=== PATIENT | female | born 1935 | race Caucasian/White ===

== ENCOUNTER 2016-10-21 16:05 | Emergency (ER) | payer OTHER, MEDICAID ==
[~2016-10-21 16:05] MED LIST: BENICAR HCT 12.1 TAB PO; DEXILANT DR PO; ECO81 PO; FLUOXETINE20 MG PO; GLYBURIDE/METFO1 TA7 PO; HYDROXYCHLOROQ200 M2 PO; JANUVIA100 MG PO; LANTI SQ; LOR PO; LYRICA100 MG PO; MET2.5 PO; METHOTREXATE2.5 PO; NIT0.4 SL; NORCO1 TA2 PO; PRAMIPEXOLE0.125 MG PO; REG5 PO; SIMVASTATIN40 MG PO; Z PO
[2016-10-21 19:25] VITALS: BP 156/90
== END 2016-10-21 19:25 | disposition home or self-care (01) ==
LOC: ED 16:05
DX: S80.01XA Contusion of right knee, initial encounter (principal); I10 Essential (primary) hypertension; E11.9 Type 2 diabetes mellitus without complications; E78.00 Pure hypercholesterolemia, unspecified; M19.90 Unspecified osteoarthritis, unspecified site; Z88.6 Allergy status to analgesic agent; Z88.8 Allergy status to other drugs, medicaments and biological substances; Z79.4 Long term (current) use of insulin; W17.89XA Other fall from one level to another, initial encounter; Y93.89 Activity, other specified; Y92.89 Other specified places as the place of occurrence of the external cause; Y99.8 Other external cause status
CPT/HCPCS: J1885; Q0092

== ENCOUNTER 2017-03-15 17:14 | Inpatient (IN) | payer OTHER, MEDICAID ==
[~2017-03-15] VITALS: Ht 157.5 cm; Wt 76.8 kg
[2017-03-15 18:18] LABS: BASOPHIL % 1.5 % (0-2); PLATELET COUNT 278 x10^3mcL (130-400); RED CELL DISTRIBUTION WIDTH 13.9 % (11.5-14.5)
[2017-03-15 18:28] LABS: CALCIUM 8.4 mg/dL (8.5-10.1); CARBON DIOXIDE 24.4 mmol/L (21-32); CHLORIDE SERUM 98 mmol/L (98-107); GLUCOSE SERUM 447 mg/dL (74-106); POTASSIUM SERUM 4.1 mmol/L (3.5-5.1); SODIUM SERUM 132 mmol/L (136-145)
[2017-03-15 18:33] LABS: ALBUMIN 3.3 g/dL (3.4-5.0); ALKALINE PHOSPHATASE 116 U/L (46-116); ALT/SGPT 28 U/L (14-59); AST/SGOT 29 U/L (15-37); BILIRUBIN TOTAL 0.54 mg/dL (0.20-1.00); TOTAL PROTEIN, SERUM 7.1 g/dL (6.4-8.2)
[2017-03-15 20:32] VITALS: BP 166/88
[2017-03-15 20:35] VITALS: Ht 157.5 cm; Wt 76.8 kg
[2017-03-15 21:05] LABS: TOTAL IRON BINDING CAPACITY 250 ug/dL (250-450)
[2017-03-15 21:07] LABS: IRON 31 ug/dL (50-170)
[2017-03-15 21:08] LABS: PHOSPHOROUS 2.3 mg/dL (2.5-4.9)
[2017-03-15 21:10] LABS: RED BLOOD CELLS 4.23 M/mm3 (4.10-5.10)
[2017-03-15 21:11] LABS: CHOLESTEROL/HDL RATIO 2.2
[2017-03-15 21:19] LABS: FREE T4 1.08 ng/dL (0.76-1.46); FREE THYROXINE INDEX 2.7 ug/dL (1.4-4.5); T4(THYROXINE) 8.2 ug/dL (4.7-13.3)
[2017-03-16 02:24] LABS: UA SPECIFIC GRAVITY 1.025 (1.005-1.035); microscopic required? YES; urine erythrocyte TRACE (NEGATIVE)
[2017-03-16 06:14] VITALS: BP 162/91
[2017-03-16 10:03] VITALS: BP 163/78
[2017-03-16 13:45] LABS: T3 TOTAL 0.95 ng/mL
[2017-03-16 15:08] VITALS: BP 145/69
[2017-03-16 17:59] VITALS: BP 150/76
[2017-03-16 20:55] VITALS: BP 164/68
[2017-03-17 05:48] VITALS: BP 131/63
[2017-03-17 06:23] LABS: CALCIUM 8.1 mg/dL (8.5-10.1); CARBON DIOXIDE 29.4 mmol/L (21-32); CHLORIDE SERUM 101 mmol/L (98-107); CREATININE SERUM 0.7 mg/dL (0.6-1.0); GLUCOSE SERUM 223 mg/dL (74-106); MAGNESIUM 2.2 mg/dL (1.8-2.4); PHOSPHOROUS 2.9 mg/dL (2.5-4.9); POTASSIUM SERUM 3.6 mmol/L (3.5-5.1); SODIUM SERUM 138 mmol/L (136-145)
[2017-03-17 06:27] LABS: BASOPHIL % 0.2 % (0-2); PLATELET COUNT 235 x10^3mcL (130-400)
[2017-03-17 06:30] LABS: RED CELL DISTRIBUTION WIDTH 15.2 % (11.5-14.5)
[2017-03-17 13:25] VITALS: BP 141/73
[2017-03-17] MEDS ORDERED: FER300 PO (15:05)
[2017-03-17] MEDS ORDERED: XARELTO20 M1 PO (15:06)
[2017-03-17] MEDS ORDERED: COZAAR100 MG PO (15:11)
[2017-03-17] MEDS ORDERED: PROZ20 PO (15:13)
[2017-03-17] MEDS ORDERED: MIR125 PO (15:17)
[2017-03-17] MEDS ORDERED: VITC PO (15:22)
[2017-03-17] MEDS ORDERED: BENICAR HCT1 TA1 PO (15:23)
[2017-03-17] MEDS ORDERED: METFORMIN HCL1000 MG PO (16:55)
[2017-03-17] MEDS ORDERED: GLYBURIDE5 MG PO (16:55)
[2017-03-17 17:39] VITALS: BP 146/72
[2017-03-17 18:07] VITALS: BP 146/72
== END 2017-03-17 18:45 | disposition home health service (06) | DRG 562 ==
LOC: ED 17:14 → DU 19:11 → MU 03-17 07:57
PROVIDERS: Emergency Medicine; Family Medicine
DX: S42.252A Displaced fracture of greater tuberosity of left humerus, initial encounter for closed fracture (principal); N17.0 Acute kidney failure with tubular necrosis; E87.1 Hypo-osmolality and hyponatremia; N39.0 Urinary tract infection, site not specified; G90.9 Disorder of the autonomic nervous system, unspecified; E11.40 Type 2 diabetes mellitus with diabetic neuropathy, unspecified; E11.65 Type 2 diabetes mellitus with hyperglycemia; I48.91 Unspecified atrial fibrillation; I25.10 Atherosclerotic heart disease of native coronary artery without angina pectoris; I10 Essential (primary) hypertension; M32.9 Systemic lupus erythematosus, unspecified; M06.9 Rheumatoid arthritis, unspecified; E83.42 Hypomagnesemia; E83.39 Other disorders of phosphorus metabolism; D64.9 Anemia, unspecified; Z68.30 Body mass index [BMI] 30.0-30.9, adult; Z98.61 Coronary angioplasty status; Z96.652 Presence of left artificial knee joint; Z79.4 Long term (current) use of insulin; Z79.891 Long term (current) use of opiate analgesic; Z79.82 Long term (current) use of aspirin; W18.39XA Other fall on same level, initial encounter; Y92.009 Unspecified place in unspecified non-institutional (private) residence as the place of occurrence of the external cause
CPT/HCPCS: 83880; 84439; 97110-GP; 97116-GP; 97530-GP; J2060; J2405; J3010; J3475; J7030; J8597; Q0092

== ENCOUNTER 2018-01-02 16:13 | Emergency (ER) | payer OTHER, MEDICAID ==
[~2018-01-02] VITALS: Ht 162.6 cm; Wt 66.7 kg
[~2018-01-02 16:13] MED LIST changes: +BENICAR HCT1 TA1 PO; +COZAAR100 MG PO; +FER300 PO; +GLYBURIDE5 MG PO; +METFORMIN HCL1000 MG PO; +MIR125 PO; +PROZ20 PO; +VITC PO; +XARELTO20 M1 PO
[2018-01-02 16:16] VITALS: Ht 162.6 cm; Wt 66.7 kg
[2018-01-02 17:07] LABS: BASOPHIL % 0.2 % (0-2); PLATELET COUNT 300 x10^3mcL (130-400)
[2018-01-02 17:08] LABS: RED CELL DISTRIBUTION WIDTH 14.8 % (11.5-14.5)
[2018-01-02 17:15] LABS: CALCIUM 9.2 mg/dL (8.5-10.1); CARBON DIOXIDE 21.5 mmol/L (21-32); CHLORIDE SERUM 95 mmol/L (98-107); CREATININE SERUM 0.9 mg/dL (0.6-1.0); GLUCOSE SERUM 332 mg/dL (74-106); POTASSIUM SERUM 3.8 mmol/L (3.5-5.1); SODIUM SERUM 131 mmol/L (136-145)
[2018-01-02 17:21] LABS: ALBUMIN 3.5 g/dL (3.4-5.0); ALKALINE PHOSPHATASE 110 U/L (46-116); ALT/SGPT 21 U/L (14-59); AST/SGOT 16 U/L (15-37); BILIRUBIN TOTAL 0.7 mg/dL (0.20-1.00); TOTAL PROTEIN, SERUM 7.5 g/dL (6.4-8.2)
[2018-01-02 19:19] VITALS: BP 148/70
== END 2018-01-02 19:19 | disposition home or self-care (01) ==
LOC: ED 16:13
PROVIDERS: Emergency Medicine
DX: S01.01XA Laceration without foreign body of scalp, initial encounter (principal); R42 Dizziness and giddiness; E78.00 Pure hypercholesterolemia, unspecified; I48.91 Unspecified atrial fibrillation; Z88.8 Allergy status to other drugs, medicaments and biological substances; W22.8XXA Striking against or struck by other objects, initial encounter; Y93.9 Activity, unspecified; Y92.89 Other specified places as the place of occurrence of the external cause; Y99.8 Other external cause status
CPT/HCPCS: 82962; 90715; J2001; J8597

== ENCOUNTER 2018-01-09 10:25 | Emergency (ER) | payer OTHER, MEDICAID ==
[~2018-01-09] VITALS: Ht 154.9 cm; Wt 66.7 kg
[2018-01-09 11:06] VITALS: BP 143/70; Ht 154.9 cm; Wt 66.7 kg
== END 2018-01-09 12:26 | disposition home or self-care (01) ==
LOC: ED 10:25
DX: S01.01XD Laceration without foreign body of scalp, subsequent encounter (principal); I10 Essential (primary) hypertension; E11.9 Type 2 diabetes mellitus without complications; E78.00 Pure hypercholesterolemia, unspecified; M19.90 Unspecified osteoarthritis, unspecified site; Z88.6 Allergy status to analgesic agent; Z88.5 Allergy status to narcotic agent; Z88.8 Allergy status to other drugs, medicaments and biological substances

== ENCOUNTER 2018-08-20 21:24 | Inpatient (IN) | payer OTHER, MEDICAID ==
[~2018-08-20] VITALS: Ht 157.5 cm; Wt 69.9 kg
[2018-08-20 21:46] VITALS: Ht 157.5 cm; Wt 69.9 kg
--- NOTE | 2018-08-20 22:30 | NUR ---
PT PRESENTED TO ED FOR RIGHT HIP PAIN IN GROIN AREA S/P FALL TODAY. FAMILY STATES "SHE GOT DIZZY, LET GO OFF HER WALKER AND FELL ON HER BUTT". DENIES ANY PAIN IN LEGS, LEFT HIP, BACK, NECK, OR CHEST. DENIES LOC. DAUGHTER AT BEDSIDE AND STATES "MY SISTER TAKES CARE OF HER SO SHE WAS THERE". PT STATES INCREASE IN PAIN WITH MOVEMENT. +PMSC. PT ASSISTED INTO GOWN. CM AND [address]. FAMILY STATES "I THINK SHES JUST KIND OF ANXIOUS, SHE DOES GET ANXIETY". PT IN NAD. BREATHING EVEN AND UNLABORED. PT A&0X4, SPEAKING CLEAR SENTENCES. PT PLACED IN POSITION OF COMFORT. AWAITING MSE. WILL CONTINUE TO MONITOR.
--- NOTE | 2018-08-20 23:27 | NUR ---
PT OFF UNIT, IN RADIOLOGY
--- NOTE | 2018-08-21 00:05 | NUR ---
PT PLACED ON URINAL BY ANGELICA SANTAMARIA. PT ABLE TO URINATE SMALL AMOUNT CLEAR YELLOW URINE. PT TOLERATED WELL. WILL CONTINUE TO MONITOR.
--- NOTE | 2018-08-21 00:08 | NUR ---
EKG IN PROGRESS AT BEDSIDE
[2018-08-21 00:27] LABS: PLATELET COUNT 243 x10^3mcL (130-400)
[2018-08-21 00:36] LABS: microscopic required? YES; urine erythrocyte TRACE (NEGATIVE)
[2018-08-21 00:37] LABS: RED CELL DISTRIBUTION WIDTH 17.8 % (11.5-14.5)
[2018-08-21 00:41] LABS: MONOCYTE 5 % (0-7); SEGMENTED NEUTROPHILS 87 % (37-75)
--- NOTE | 2018-08-21 00:41 | NUR ---
PT TO CT VIA HOOD
[2018-08-21 00:48] LABS: PLATELET MORPHOLOGY PLATELETS NORMAL; acanthocyte (spur cell) 2+; ovalocyte/elliptocyte 1+; rbc morphology (normal/abnorm) ABNORMAL (NORMAL); schistocyte (helmet cell) 1+
[2018-08-21 00:57] LABS: CALCIUM 9.1 mg/dL (8.5-10.1); CARBON DIOXIDE 23.5 mmol/L (21-32); CHLORIDE SERUM 95 mmol/L (98-107); GLUCOSE SERUM 260 mg/dL (74-106); POTASSIUM SERUM 3.3 mmol/L (3.5-5.1); SODIUM SERUM 133 mmol/L (136-145)
[2018-08-21 01:12] LABS: ALBUMIN 3.6 g/dL (3.4-5.0); ALKALINE PHOSPHATASE 94 U/L (46-116); ALT/SGPT 31 U/L (14-59); AST/SGOT 35 U/L (15-37); BILIRUBIN TOTAL 0.8 mg/dL (0.20-1.00); TOTAL PROTEIN, SERUM 7.1 g/dL (6.4-8.2)
--- NOTE | 2018-08-21 01:20 | NUR ---
CARDIZEM 10 MG IV PUSHED. CM AND [address],HR 146. PT TOLERATED WELL. WILL CONTINUE TO MONITOR.
--- NOTE | 2018-08-21 01:28 | NUR ---
XRAY AT BEDSIDE. PT AWAKE AND ALERT. STILL APPEARS RESTLESS. DR QUISPE MADE AWARE. NO FURTHER ORDERS AT THIS TIME. WILL CONTINUE TO MONITOR.
--- NOTE | 2018-08-21 01:50 | NUR ---
PT APPEARS CALM LAYING IN NAD WITH HOB RAISED. PTS EYES CLOSED EASILY AROUSABLE. CM AND [address] FAMILY AT BEDSIDE. WILL CONTINUE TO MONITOR.
[2018-08-21] MEDS ORDERED: ESOMEPRAZOLE MA40 MG PO (02:31)
[2018-08-21] MEDS ORDERED: METOPROLOL SUCC50 M2 PO (02:32)
[2018-08-21] MEDS ORDERED: OXYBUTYNIN CHLOR5 MG PO (02:32)
[2018-08-21] MEDS ORDERED: LIPI20 PO (02:32)
[2018-08-21] MEDS ORDERED: TRESIBA FL100 UNIT/1 SQ (02:33)
[2018-08-21] MEDS ORDERED: NOVOLIN R100 U/ML IV (02:33)
[2018-08-21] MEDS ORDERED: TRAZODONE50 M1 PO (02:34)
--- NOTE | 2018-08-21 02:59 | NUR ---
REPORT CALLED TO AUREA SANTAMARIA.
--- NOTE | 2018-08-21 03:05 | NUR ---
PT STATES SHE HAS TO USE RESTROOM. ASSISTED PT ON FRACTURE IRIZARRY. PT URINATED SMALL AMOUNT. PT TOLERATED WELL. PT AWAKE AND ALERT. CM AND [address] FAMILY AT BEDSIDE. WILL CONTINUE TO MONITOR.
--- NOTE | 2018-08-21 03:15 | NUR ---
PT TRANSFERED TO BED 244B AT THIS TIME IN NAD. BREATHING EVEN AND UNLABORED. PT AWAKE AND ALERT. PT AND FAMILY VERBALIZED UNDERSTANDING OF PLAN OF CARE. AUREA RN AT BEDSIDE TO RECIEVE PT. PT MOVED TO [facility] WITH ASSISTANCE BY KENYON CEDENO AND AUREA SANTAMARIA. PT MOVED SAFELY WITH NO INCIDENCE NOTED. PT TRANSFERED VIA [facility] ACCOMPANIED BY MYSELF, KENYON CEDENO, AND FAMILY.
[2018-08-21 03:17] LABS: PHOSPHOROUS 1.9 mg/dL (2.5-4.9)
[2018-08-21 03:18] LABS: CHOLESTEROL/HDL RATIO 2.6
--- NOTE | 2018-08-21 03:18 | NUR ---
RECEIVED FROM ER TRANSPORTED VIA [facility]. ACCOMPANIED BY HER DAUGHTER KEMAR. PT AWAKE AND ALERT, ANSWERING QUESTIONS APPROPRIATELY. APPEARS ANXIOUS. BREATHING EVEN AND UNLABORED ON ROOM AIR, LUNG SOUNDS CLEAR TO AUSCULTATION. AFIB ON TELE. DENIES HAVING CHEST PAIN. HAS PAIN TO RIGHT HIP WHEN MOVED OR REPOSITIONED. NO OPEN SKIN BREAKDOWN NOTED. ADMITTED FOR RIGHT HIP FRACTURE AND AFIB. SALINE LOCK TO LEFT HAND, 22G, FLUSHED WELL. ORIENTED TO ROOM ENVIRONMENT, INSTRUCTED ON USE OF CALL LIGHT TO CALL FOR ASSISTANCE. PLACED WITHIN EASY REACH. HOB ELEVATED 30 DEG. DAUGHTER TO STAY.
[2018-08-21 03:35] VITALS: BP 125/73
[2018-08-21 03:38] VITALS: BP 125/73
[2018-08-21 04:03] LABS: FREE T4 1.35 ng/dL (0.76-1.46); FREE THYROXINE INDEX 3.4 ug/dL (1.4-4.5)
[2018-08-21 04:14] LABS: T3 TOTAL 1.3 ng/mL
--- NOTE | 2018-08-21 04:17 | NUR ---
EXPLAINED PHYSICIAN'S ORDER INCLUDING NEED TO INSERT DOWLING CATH.
--- NOTE | 2018-08-21 04:53 | NUR ---
DOWLING CATH INSERTED BY NURSE CONRAD, URINE YELLOW IN COLOR.
--- NOTE | 2018-08-21 06:07 | NUR ---
EYES CLOSED, EASILY AWAKENED. HOB KEPT ELEVATED 30 DEG. FAMILY MEMBERS EARLIER LEFT, PLACED BED ALARM ON. CALL LIGHT WITHIN EASY REACH. BREATHING EVEN AND UNLABORED. CALM AND COOPERATIVE W./ CARE. STILL AFIB ON TELE, HR 104/MIN. CAPILLARY REFILL TO RIGHT TOES < 2 SECS, ABLE TO WIGGLE RIGHT TOES.
--- NOTE | 2018-08-21 07:06 | NUR ---
RECEIVED REPORT FROM AUREA SANTAMARIA. PT IN BED ATTEMPTING TO GET UP WITH PROJECT MGR CURRENTLY AT BEDSIDE. IV TO LT HAND IS PATENT AND INFUSING NS @ 70 ML/HR. NO REDNESS OR PAIN. TELE # [address] NO C/O CHEST PAIN. PT ON ROOM AIR. NO C/O SOB AND NO DISTRESS NOTED. DOWLING IN PLACE DRAINING YELLOW URINE. NO C/O PAIN. ALL QUESTIONS AND CONCERNS ADDRESSED.
--- NOTE | 2018-08-21 07:09 | NUR ---
AWAKE, ALERT, BREATHING UNLABORED ON ROOM AIR. BED ALARM ON. CALL LIGHT WITHIN EASY REACH. ENDORSED TO NURSE HARMONY.
[2018-08-21 07:15] LABS: PLATELET COUNT 207 x10^3mcL (130-400)
--- NOTE | 2018-08-21 07:20 | NUR ---
DR BAUTISTA IN TO SEE AND ASSESS PATIENT. PATIENT'S DAUGHTER REQUESTED SOMETHING FOR ANXIETY.
[2018-08-21 07:21] LABS: CALCIUM 8.7 mg/dL (8.5-10.1); CARBON DIOXIDE 22.5 mmol/L (21-32); CHLORIDE SERUM 99 mmol/L (98-107); CREATININE SERUM 0.8 mg/dL (0.6-1.0); GLUCOSE SERUM 253 mg/dL (74-106); POTASSIUM SERUM 3.8 mmol/L (3.5-5.1); SODIUM SERUM 137 mmol/L (136-145)
[2018-08-21 07:22] LABS: RED CELL DISTRIBUTION WIDTH 17.5 % (11.5-14.5)
[2018-08-21 07:23] LABS: BASOPHIL % 0 % (0-2)
[2018-08-21 08:48] VITALS: BP 132/71
--- NOTE | 2018-08-21 10:52 | NUR ---
SPOKE WITH DR BAUTISTA TO NOTIFY THAT MAG WAS 1.0 YESTERDAY AND COVERED WITH 400MG PO. ASKED IF SHE WOULD LIKE A REDRAW. DR BAUTISTA ORDERED MAG SULFATE IVPB AND A REDRAW FOR TOMORROW.
[2018-08-21 13:11] VITALS: BP 131/72
--- NOTE | 2018-08-21 15:56 | NUR ---
IN TO SEE PATIENT AND CONTINUE IV FLUIDS. IV FLUIDS DO NOT NEED CHANGING. PT SLEEPING COMFORTABLY IN ED WITH FAMILY AT BEDSIDE. NO NEEDS IDENTIFIED.
[2018-08-21 17:22] VITALS: BP 122/61
--- NOTE | 2018-08-21 19:38 | NUR ---
PT. AWAKE, ALERT, ORIENTED TO SELF AND PLACE. ABLE TO FOLLOW MOST COMMANDS. SPEECH SLOW BUT CLEAR. BREATH SOUNDS CLEAR THROUGHOUT LUNG BARRON, RESP. EVEN, UNLABORED. NO SOB NOTED. ON RA. ABD. SOFT AND ROUND, BOWEL SOUNDS ACTIVE. PEDAL PULSES STRONG INGRID. IVF INFUSING WELLNS AT 70CC/HR TO LT. HAND, SITE INTACT. PT. AFIB ON TELE #14. DENIES CHESTPAIN OR DISCOMFORT. F/C DRAINING WELL TO GRAVITY. BED LOW LAYING WITH ALARM ON.
--- NOTE | 2018-08-21 19:39 | NUR ---
REPORT GIVEN TO VIKI SANTAMARIA. PT RESTING COMFORTABLY IN BED WITH FAMILY AT BEDSIDE. ALL NEEDS MET. AWAITING CONSULTATION WITH SABRI. ALL QUESTIONS AND CONCERNS ADDRESSED.
--- NOTE | 2018-08-21 20:02 | NUR ---
PT. GRIMACNG AND C/O PAIN IN RLE. PRN TRAMADOL GIVEN ORDERED. PT. ALSO RECEIVED ROUTINE DOSE OF TRAZADONE.FAMILY REMAINS AT BEDSIDE. WILL MONITOR.
[2018-08-21 20:54] VITALS: BP 113/53
--- NOTE | 2018-08-22 01:07 | NUR ---
PT. BETWEEN SLEEP AND WAKE. REORIENTED FREQUENTLY. ASKING FOR HER DAUGHTER AT TIME. NEW IV SITE STARTED TO RT. HAND. PT. AFIB ON MONITOR. BED ALARM REMAINS ON, WITH BED LOW LAYING. WILL CONTINUE TO MONITOR.
[2018-08-22 05:59] VITALS: BP 128/53
--- NOTE | 2018-08-22 06:27 | NUR ---
PT. SLEPING AT THIS TIME. SHE WAS A LITTLE RESTLESS INTERMITTENTLY THROUGHOUT THE NIGHT. NO RESP. DISTRESS. REMAINS AFIB ON THE MONITOR. F/C IN-SITU. IV SITE INTACT.BED LOW LAYING WITH ALARM ON. CALL LIGHT WITHN REACH. WILL ENDORSE PT. CARE TO INCOMING NURSE.
[2018-08-22 06:47] LABS: BASOPHIL % 0.3 % (0-2); PLATELET COUNT 172 x10^3mcL (130-400)
[2018-08-22 06:48] LABS: RED CELL DISTRIBUTION WIDTH 18.9 % (11.5-14.5)
--- NOTE | 2018-08-22 07:00 | NUR ---
RECEIVED BEDSIDE REPORT FROM UNDERCUTTER OPERATOR NURSE. PATIENT IS STABLE, RESTING COMFORTABLY IN BED. NO APPARENT SIGNS OF PAIN,SOB, OR RESPIRATORY DISTRESS. PATIENT IS ON ROOM AIR, RESPIRATIONS EVEN, NOT LABORED, SCD'S IN [place]. IV TO R HAND INFUSING NS AT 70ML/HR. NO EDEMA OR ERYTHEMA NOTED AT SITE. BED IN LOW POSITION, BED RAILS UP X2. DAUGHTER AT BEDSIDE. CALL LIGHT WITHIN REACH. PATIENT DENIES OTHER NEEDS AT THIS TIME. SAFETY PRECAUTIONS IN PLACE.
--- NOTE | 2018-08-22 07:23 | NUR ---
PHYSICAL ASSESSMENT COMPLETED. PLEASE SEE PROBLEM FOCUSED CARE FOR DETAILS.
[2018-08-22 07:44] LABS: CALCIUM 8.7 mg/dL (8.5-10.1); CARBON DIOXIDE 22.7 mmol/L (21-32); CHLORIDE SERUM 105 mmol/L (98-107); CREATININE SERUM 0.7 mg/dL (0.6-1.0); GLUCOSE SERUM 193 mg/dL (74-106); MAGNESIUM 1.6 mg/dL (1.8-2.4); PHOSPHOROUS 3.2 mg/dL (2.5-4.9); POTASSIUM SERUM 4.1 mmol/L (3.5-5.1); SODIUM SERUM 137 mmol/L (136-145)
--- NOTE | 2018-08-22 08:06 | NUR ---
PATIENT IS RESTING COMFORTABLY IN BED. NO APPARETN SIGNS OF PAIN, SOB, OR RESPIRATORY DISTRESS. PATIENT DENIES PAIN AT THIS TIME. DAUGHTER AT BEDSIDE. PATIENT DENIES OTHER NEEDS. CALL LIGHT WITHIN REACH. BED IN LOW POSITION, BED RAILS UP X2. SAFETY PERCAUTIONS IN PLACE.
[2018-08-22 09:27] VITALS: BP 116/47
--- NOTE | 2018-08-22 09:58 | NUR ---
RECEIVED BEDSIDE REPORT FROM LENS GRINDER ROUGH NURSE. PATIENT IS STABLE, RESTING COMFORTABLY IN BED. NO APPARENT SIGNS OF PAIN,SOB, OR RESPIRATORY DISTRESS. PATIENT IS ON ROOM AIR, RESPIRATIONS EVEN, NOT LABORED, SCD'S IN [place]. IV TO R HAND INFUSING NS AT 70ML/HR. NO EDEMA OR ERYTHEMA NOTED AT SITE. BED IN LOW POSITION, BED RAILS UP X2. DAUGHTER AT BEDSIDE. CALL LIGHT WITHIN REACH. PATIENT DENIES OTHER NEEDS AT THIS TIME. SAFETY PRECAUTIONS IN PLACE.
--- NOTE | 2018-08-22 10:20 | NUR ---
PHYSICAL THERAPY WITH PATIENT.
--- NOTE | 2018-08-22 12:11 | NUR ---
PATIENT IS RESTING COMFORTABLY IN BED. NO APPARETN SIGNS OF PAIN, SOB, OR RESPIRATORY DISTRESS. ADMINISTERED GLUCOSE CHECK AND ADMINISTERED MEDICATION PER EMAR. PATIENT TOLORATED WELL. PATIENT DENIES PAIN AT THIS TIME. DAUGHTER AT BEDSIDE. PATIENT DENIES OTHER NEEDS. CALL LIGHT WITHIN REACH. BED IN LOW POSITION, BED RAILS UP X2. SAFETY PERCAUTIONS IN PLACE.
--- NOTE | 2018-08-22 14:30 | NUR ---
PATIENT IS STABLE, NO APPARENT SIGNSOF PAIN, SOB, OR RESPIRATORY DISTRESS. PATIENT DENIES PAIN AT THIS TIME. DAUGHTER AT BEDSIDE. PATIENT DENIES OTHER NEEDS AT THIS TIME. SAFETY PRECAUTIONS ARE IN PLACE.
[2018-08-22 16:03] VITALS: BP 102/40
--- NOTE | 2018-08-22 17:21 | NUR ---
PATIENT COMPLAINING OF PAIN TO THE RIGHT HIP 9/10 AND NAUSEA. MEDICATED PER EMAR. PATIENT EDUCATED ON NEED FOR MEDICATION WELL ADVERSE EFFECTES TO REPORT. QUESTIONS AND CONCERNS ADDRESSED, SAFETY PRECAUTIONS IN PLACE.
--- NOTE | 2018-08-22 17:51 | NUR ---
ADMINISTERED MEDICATIONS PER EMAR. PATIENT WAS EDUCATED ON NEED FOR MEDICATION WELL ADVERSE EFFECTS TO REPORT. PATIENT TOLORATED WELL. DENIES OTHER NEEDS AT THIS TIME QUESTIONS AND CONCERNS ADDRESSED. SAFETY PRECAUTIONS IN PLACE. DAUGHTER AT BEDSIDE.
--- NOTE | 2018-08-22 19:02 | NUR ---
PATIENT STABLE, NO APPARETN SIGNS OF PAIN, SOB, OR RESPIRATORY DISTRESS. PATIENT IS RESTING COMFORTABLY IN BED. ON ROOM AIR. RESPIRATIONS EVEN, NOT LABORED. FAMILY AT BEDSIDE. IV TO RIGHT HAND INFUSING NS AT 70ML/HR. BED IN LOW POSITION, BEDRAILS UP X2. QUESTIONS AND CONCERNS ADDRESSED. SAFETY PRECAUTIONS IN PLACE. WILL ENDORSE CARE TO ETL DEVELOPER NURSE VIKI.
--- NOTE | 2018-08-22 20:16 | NUR ---
PT. AWAKE, ALERT, ORIENTED X4. ABLE TO FOLLOW COMMANDS. SPEECH CLEAR. BREATH SOUNDS CLEAR THROUGHOUT LUNG BARRON, RESP. EVEN, UNLABORED. PT. ON RA. ABD. SOFT AND ROUND, BOWEL SOUNDS ACTIVE. SKIN INTACT THROUGHOUT. F/C DRAINING WELL TO GRAVITY CLEAR YELLOW URINE. IVF NS AT 70CC/HR, SITE INTACT. FFAMILY AT BEDSIDE. CALL LIGHT WITHIN REACH.
[2018-08-22 21:01] VITALS: BP 138/64
--- NOTE | 2018-08-23 01:37 | NUR ---
PT. W/ EYES CLOSED, APPEARS TO BE SLEEPING. NO COMPLAINTS THUS FAR. PT. APPEARS COMFORTABLE. WILL MONITOR.
[2018-08-23 05:25] VITALS: BP 132/85
[2018-08-23 06:22] LABS: BASOPHIL % 0.2 % (0-2); PLATELET COUNT 169 x10^3mcL (130-400)
--- NOTE | 2018-08-23 06:25 | NUR ---
PT. AWAKE AND SITTING UP IN BED. SLEPT WELL MOSTLY THROUGHOUT NIGHT. C/O PAIN IN INGRID FEET. PAIN WHEN HER FEET IS TOUCHED OR ANKLES FLEXED. REFUSING PAIN MEDICATION. PT.FEET REPOSITIONED AND PT. STATED SATISFACTION. IV SITE REMAINS INTACT. CALL LIGHT WITHIN REACH. WILL ENDORSE PT. CARE TO INCOMING NURSE.
[2018-08-23 06:47] LABS: CALCIUM 8.7 mg/dL (8.5-10.1); CARBON DIOXIDE 24.9 mmol/L (21-32); CHLORIDE SERUM 105 mmol/L (98-107); CREATININE SERUM 0.8 mg/dL (0.6-1.0); GLUCOSE SERUM 210 mg/dL (74-106); MAGNESIUM 1.5 mg/dL (1.8-2.4); PHOSPHOROUS 2.6 mg/dL (2.5-4.9); POTASSIUM SERUM 4.7 mmol/L (3.5-5.1); SODIUM SERUM 139 mmol/L (136-145)
--- NOTE | 2018-08-23 07:15 | NUR ---
RECEIVED PT FROM CELLOPHANE WORKER NURSE. PT RESTING IN BED, AOX4, REP E/U ON RA. NO ACUTE DISTRESS NOTED. ON TELE 14 SHOWING A-FIB, HR: 83. IV TO R HAND W/ NO SIGNS OF INFILTRATION, IVF INFUSING WELL. BED IFOLEY IN PLACE DRAINING PITER COLORED URINE TO GRAVITY. BED IN LOWEST POSITION AND CALL LIGHT WITHIN REACH. WILL CONTINUE TO MONITOR.
[2018-08-23 08:36] VITALS: BP 128/74
[2018-08-23 11:30] VITALS: BP 123/62
--- NOTE | 2018-08-23 12:21 | NUR ---
PT REPORTED BILAT FEET PAIN 09/13. NO RELIEF FROM PRN ULTRAM PO. MEDICATED ORDERED W/ PRN MORPHINE IVP. ASSISTED PT REPOSITION TO COMFORTABLE POSITION IN BED. BED IN LOWEST POSITION AND CALL LIGHT WITHIN REACH. FAMILY MEMEBER AT BEDSIDE. WILL CONTINUE TO MONITOR.
[2018-08-23 16:41] VITALS: BP 121/62
--- NOTE | 2018-08-23 18:32 | NUR ---
PT MEDICATED ORDERED W/ PRN ATIVAN. PT DENIES PAIN TO HER FEET AT THIS TIME. IV TO R HAND W/ NO SIGNS OF INFILTRATION, IVF INFUSING WELL. DOWLING CATHETER IN PLACE DRAINING PITER URINE TO GRAVITY. BED IN LOWEST POSITION AND CALL LIGHT WITHIN REACH. WILL ENDORSE TO ONCOMING NURSE.
--- NOTE | 2018-08-23 19:57 | NUR ---
RECEIVED PT FROM PREVIOUS SHIFT. DROWSY BUT AROUSABLE. MEDSURG. DENIES PAIN. NO S/S ACUTE DISTRESS. BREATHING E/U. PT GRANDDAUGHTER AT BEDSIDE, STATES PT WAS RESTLESS EARLIER SO PT WAS RECENTLY MEDICATED WITH ATIVAN PO. DOWLING CATHETER DRAINING CLEAR YELLOW URINE. IV SITE FREE OF ERYTHEMA OR EDEMA, IVF INFUSING WELL. CALL LIGHT WITHIN REACH. SAFETY MEASURES IN PLACE. WILL CONTINUE TO MONITOR.
[2018-08-23 20:56] VITALS: BP 139/53
--- NOTE | 2018-08-24 00:45 | NUR ---
PT AWAKE, C/O PAIN TO BOTH LEGS, MEDICATED PER EMAR. NO S/S ACUTE DISTRESS. BREATHING E/U. WILL CONTINUE TO MONITOR.
--- NOTE | 2018-08-24 03:31 | NUR ---
PT FOUND WITH IV TO R HAND PULLED OUT. IV CATHETER FOUND INTACT. WILL ATTEMPT TO REINSERT.
[2018-08-24 04:41] VITALS: BP 144/66
--- NOTE | 2018-08-24 05:56 | NUR ---
PT HAD RESTLESS NIGHT. DENIES PAIN. NO S/S ACUTE DISTRESS. DOWLING CONTINUES TO DRAIN TO GRAVITY, YELLOW URINE NOTED. ALL NEEDS MET AND ATTENDED TO. NO CHANGES OVERNIGHT. SAFETY MEASURES IN PLACE. CALL LIGHT WITHIN REACH. WILL ATTEMPT TO REINSERT IV.
--- NOTE | 2018-08-24 06:51 | NUR ---
NEW IV INSERTED INTO OUTER RFA, GOOD BLOOD RETURN AND FLUSHES WELL. WRAPPED WITH BANDAGE FOR PROECTION. WILL CONTINUE TO MONITOR.
[2018-08-24 06:58] LABS: CALCIUM 8.8 mg/dL (8.5-10.1); CHLORIDE SERUM 99 mmol/L (98-107); CREATININE SERUM 0.7 mg/dL (0.6-1.0); GLUCOSE SERUM 289 mg/dL (74-106); MAGNESIUM 1.6 mg/dL (1.8-2.4); POTASSIUM SERUM 4.3 mmol/L (3.5-5.1); SODIUM SERUM 133 mmol/L (136-145)
--- NOTE | 2018-08-24 07:00 | NUR ---
RECEIVED PT FROM INSEAM TRIMMER NURSE. PT IN BED, SLEEPING, RESP E/U ON RA. NO ACUTE DISTRESS NOTED. IV TO RFA W/ NO SIGNS OF INFILTRATION, IVF INFUSING WELL. DOWLING IN PLACE DRAINING PITER URINE TO GRAVITY. BED IN LOWEST POSITION AND CALL LIGHT WITHIN REACH. WILL CONTINUE TO MONITOR.
[2018-08-24 07:23] LABS: PLATELET COUNT 197 x10^3mcL (130-400)
[2018-08-24 07:30] LABS: RED CELL DISTRIBUTION WIDTH 16.7 % (11.5-14.5)
--- NOTE | 2018-08-24 07:45 | NUR ---
INFORMED BRENT YING OF WBC 15.2 AND MAG 1.6. NO NEW ORDERS AT THIS TIME.
[2018-08-24 08:18] VITALS: BP 133/61
[2018-08-24 11:28] LABS: BAND NEUTROPHIL 7 % (0-10); BASOPHIL 0 % (0-2); MONOCYTE 8 % (0-7); SEGMENTED NEUTROPHILS 77 % (37-75)
[2018-08-24 11:29] LABS: PLATELET MORPHOLOGY GIANT PLATELET SEEN; burr cell (echinocyte) 1+; ovalocyte/elliptocyte 1+; rbc morphology (normal/abnorm) ABNORMAL (NORMAL)
[2018-08-24 11:55] VITALS: BP 127/64
--- NOTE | 2018-08-24 12:19 | NUR ---
PT RESTING IN BED, AOX4, RESP E/U ON RA. NO ACTUE DISTRESS NOTED, DENIES PAIN AT THIS TIME. BED IN LOWEST POSITION AND CALL LIGHT WITHIN REACH. FAMILY MEMBER AT BEDSIDE. WILL CONTINUE TO MONITOR.
[2018-08-24 16:42] VITALS: BP 134/54
--- NOTE | 2018-08-24 18:20 | NUR ---
PT REPORTED HIP AND BILAT FEET PAIN RATED 7/10. MEDICATED ORDERED. PT AOX2, APPEARED SLIGHTLY DROWSY, RESP E/U ON RA. TOLERATING DINNER WELL W/ ASSISTANCE FROM JORDI FARMER. IV TO RFA W/ NO SIGNS OF INFILTRATION, IVF INFUSING WELL. FOLY IN PLACE DRAINING YELLOW URINE TO GRAVITY. BED IN LOWEST POSITION AND CALL LIGHT WITHIN REACH. FAMILY MEMBERS AT BEDSIDE. WILL ENDORSE TO ONCOMING NURSE.
--- NOTE | 2018-08-24 19:50 | NUR ---
RECEIVED PT FROM PREVIOUS SHIFT. DROWSY BUT EASILY AWAKENS TO SOUND. FAMILY AT BEDSIDE. WELSH SPEAKING. MEDSURG. BREATHING E/U. NO S/S ACUTE DISTRESS. RECENTLY MEDICATED PER PAIN, NO SIGNS OF PAIN OBSERVED. HOB ELEVATED. DOWLING CATHETER DRAINING CLEAR YELLOW URINE IN COLLECTION BAG. IV SITE CDI, IVF INFUSING WELL. CALL LIGHT WITHIN REACH. WILL CONTINUE TO MONITOR.
[2018-08-24 21:23] VITALS: BP 120/55
--- NOTE | 2018-08-25 01:01 | NUR ---
PT RESTING IN BED COMFORTABLY. BREATHING E/U. NO S/S ACUTE DISTRESS. NO SIGNS OF PAIN OBSERVED. IVF INFUSING WELL. CALL LIGHT WITHIN REACH. WILL CONTINUE TO MONITOR.
[2018-08-25 05:49] LABS: CALCIUM 8.7 mg/dL (8.5-10.1); CARBON DIOXIDE 21.8 mmol/L (21-32); CHLORIDE SERUM 102 mmol/L (98-107); CREATININE SERUM 0.8 mg/dL (0.6-1.0); GLUCOSE SERUM 264 mg/dL (74-106); POTASSIUM SERUM 4.7 mmol/L (3.5-5.1); SODIUM SERUM 134 mmol/L (136-145)
[2018-08-25 05:54] VITALS: BP 130/55
[2018-08-25 06:12] LABS: PLATELET COUNT 203 x10^3mcL (130-400)
--- NOTE | 2018-08-25 06:15 | NUR ---
PT HAD RESTFUL NIGHT. NO SIGNIFICANT CHANGES OVERNIGHT. ALL NEEDS MET AND ATTENDED TO. IV SITE CDI, IVF INFUSING WELL. NO INDICATIONS OF PAIN. NO ACUTE DISTRESS. CALL LIGHT WITHIN REACH. DOWLING REMAINS INTACT. SAFETY MEASURES REINFORCED. WILL ENDORSE CARE TO ONCOMING SHIFT.
--- NOTE | 2018-08-25 07:31 | NUR ---
ASSUMED CARE OF PATIENT. SEEN SLEEPING, EASILY AROUSABLE. NO COMPLAINTS OF PAIN OR DISCOMFORT. NO APPARENT S/SX OF DISTRESS OR DISCOMFORT NOTED. IV ON RFA PATENT AND INFUSING NS AT 70ML/HR. WILL CONTINUE TO MONITOR.
[2018-08-25 08:10] VITALS: BP 127/52
--- NOTE | 2018-08-25 10:07 | NUR ---
DAUGHTER AT BEDSIDE. PRN MORPHINE GIVEN MODERATELY EFFECTIVE. DAUGHTER STATES HER MOTHER HAS ABDOMINAL PAIN DUE TO NEEDING TO HAVE A BM.
[2018-08-25] MEDS ORDERED: ROC1I IV (11:21)
[2018-08-25 11:37] LABS: BAND NEUTROPHIL 0 % (0-10); BASOPHIL 0 % (0-2); MONOCYTE 4 % (0-7); SEGMENTED NEUTROPHILS 95 % (37-75)
[2018-08-25 11:38] LABS: PLATELET MORPHOLOGY PLATELETS DECREASED; rbc morphology (normal/abnorm) ABNORMAL (NORMAL)
--- NOTE | 2018-08-25 11:56 | NUR ---
PRN TRAMADOL PROVIDED FOR GENERALIZED BODY PAINS. DAUGHTER REMAINS AT BEDSIDE.
--- NOTE | 2018-08-25 12:32 | NUR ---
ISELA UPDATED ON TRANSFER TO [facility].
[2018-08-25 13:06] VITALS: BP 127/52
--- NOTE | 2018-08-25 14:06 | NUR ---
Initial Nutrition Assessment: (244-B) LUI WOLF 82F Dx: Near syncope, fall, possible hip fracture PMHx: DM, Afib, RA, CAD, depression, HTN, HLD, anxiety, neuropathy PSHx: Cholescystectomy, cataract removal, , L knee replacement 2008 Labs: Na 134 L, BG 264 H, A1c 11.9 H, BUN 19 H, RBC 3.08 L, Hgb 9.1 L, HCT 27 L Meds: Ditropan, Glucophage, Humulin, Lipitor, Lopressor, Xarelto, Zofran Diet: [facility] PO intake since admission: >75% Ht: 62in Wt: 154# BMI: 28.2 Bed scale: 166.5# IBW: 110# %IBW: 140% UBW: ~150# Age: 82 Food Allergies: NKFA Skin: WNL Ajit: 18 Edema: WNL GI: WNL Last BM: 08/23 RD Note (08/25): Pt is Sinhala speaking, spoke w/ pt's daughter bedside. Pt's daughter states c/o abd pain r/t needing to have a BM. Last BM noted 08/23. Pt noted to have PO avg >75%, but pt's daughter states pt's appetite a bit low and no appetite at home. Daughter states pt avoids eating tough meats r/t full set dentures, can be difficult to chew. Daughter states gives pt nutrition supplement shake that pt likes, asked daughter if she could encourage pt for consistent PO, daughter agreeable. Problem with: N/V/D/C: Nausea today @1030, per daughter Problems with: Chewing: Sometimes r/t dentures, full set Swallowing: No Current appetite: variable Recent wt change: No %wt change: No Vitamin/Supplement use: N/A Special diet at home: Regular Physical activity: minimal Nutrition education given (specify specific nutrition education and handout given): None given at this time. Food-drug interactions? Education given? None given at this time Estimated Nutritional Needs Based on current body weight (70 kg) Energy: 3442-4104 kcal/day (25-30 kcal/kg for geriatric maintenance) Protein: 70-84 g/day (1.2-1.5 g/kg for geriatric maintenance) Fluid: 9780-6570 mL/day (1 mL/kcal) or per MD Nutrition Diagnosis: 1. Altered nutrition-related lab values r/t medical condition, PMHx DM AEB BG 263, A1c 11.9 Intervention 1. Continue current diet order: [facility] Monitor/Evaluate Goal: PO intake at least 75% of estimated needs Monitor: PO intake, Labs, GI function F/U in 7 days as low risk 09/01
--- NOTE | 2018-08-25 14:07 | NUR ---
Recommendations: 1. Continue current diet order: [facility]
--- NOTE | 2018-08-25 14:21 | NUR ---
REPORT PROVIDED TO CORAL SANTAMARIA AT [facility].
--- NOTE | 2018-08-25 14:47 | NUR ---
PATIENT SEEN AWAKE IN ROOM. NO COMPLAINTS OF PAIN OR DISCOMFORT. NO NEW ISSUES.
--- NOTE | 2018-08-25 15:00 | NUR ---
PER PT, PATIENT MAX ASSIST FOR ALL ACTIVITIES EXCEPT FOR SITTING UP. PATIENT WAS COOPERATIVE WITH THERAPY TODAY.
--- NOTE | 2018-08-25 15:41 | NUR ---
PRN MORPHINE PROVIDED FOR 8/10 RIGHT LEG PAIN.
--- NOTE | 2018-08-25 16:12 | NUR ---
TRANSFER PAPERWORK SIGNED BY DAUGHTER. REPORT GIVEN TO TRANSPORT TEAM. IV REAMINS ON RFA PER DISCHARGE ORDERS. DOWLING CATHTER REMAINS INTACT. NO COMPLAINTS OF PAIN OR DISCOMFORT AT THIS MOMENT. FAMILY AT SIDE AND TOOK ALL BELONGINGS. ID BANDS REMOVED.
== END 2018-08-25 16:25 | DRG 535 ==
LOC: ED 21:24 → DU 08-21 01:16 → MU 08-21 01:16 → DU 08-21 03:35 → MU 08-23 13:03
PROVIDERS: Emergency Medicine; General Practice; ADMIT Internal Medicine
DX: S32.591A Other specified fracture of right pubis, initial encounter for closed fracture (principal); N17.0 Acute kidney failure with tubular necrosis; N39.0 Urinary tract infection, site not specified; E87.1 Hypo-osmolality and hyponatremia; I48.2 Chronic atrial fibrillation; E87.6 Hypokalemia; E83.42 Hypomagnesemia; I10 Essential (primary) hypertension; M06.9 Rheumatoid arthritis, unspecified; I25.10 Atherosclerotic heart disease of native coronary artery without angina pectoris; F32.9 Major depressive disorder, single episode, unspecified; R80.9 Proteinuria, unspecified; E83.39 Other disorders of phosphorus metabolism; Z96.652 Presence of left artificial knee joint; W18.39XA Other fall on same level, initial encounter; Z79.84 Long term (current) use of oral hypoglycemic drugs; Z68.30 Body mass index [BMI] 30.0-30.9, adult; Z91.81 History of falling; Y93.89 Activity, other specified; Y92.018 Other place in single-family (private) house as the place of occurrence of the external cause
CPT/HCPCS: 82962; 83880; 84439; 97110-GP; 97116-GP; 97530-GP; G0378; J0696; J2060; J2270; J2405; J3475; J3490; J7030; Q0092

== ENCOUNTER 2018-08-31 19:53 | Emergency (ER) | payer OTHER, MEDICAID ==
[~2018-08-31] VITALS: Ht 157.5 cm; Wt 72.6 kg
[~2018-08-31 19:53] MED LIST changes: +ESOMEPRAZOLE MA40 MG PO; +LIPI20 PO; +METOPROLOL SUCC50 M2 PO; +NOVOLIN R100 U/ML IV; +OXYBUTYNIN CHLOR5 MG PO; +ROC1I IV; +TRAZODONE50 M1 PO; +TRESIBA FL100 UNIT/1 SQ
[2018-08-31 19:59] VITALS: Ht 157.5 cm; Wt 72.6 kg
[2018-08-31 20:45] LABS: BASOPHIL % 0.2 % (0-2)
[2018-08-31 20:47] LABS: PLATELET COUNT 518 x10^3mcL (130-400); RED CELL DISTRIBUTION WIDTH 18.9 % (11.5-14.5)
[2018-08-31 20:55] LABS: CALCIUM 8.8 mg/dL (8.5-10.1); CHLORIDE SERUM 100 mmol/L (98-107); CREATININE SERUM 0.7 mg/dL (0.6-1.0); GLUCOSE SERUM 301 mg/dL (74-106); POTASSIUM SERUM 4.3 mmol/L (3.5-5.1); SODIUM SERUM 137 mmol/L (136-145)
[2018-08-31 20:59] LABS: ALKALINE PHOSPHATASE 178 U/L (46-116); ALT/SGPT 19 U/L (14-59); AST/SGOT 12 U/L (15-37); BILIRUBIN TOTAL 0.5 mg/dL (0.20-1.00); LIPASE 61 IU/L (73-393); TOTAL PROTEIN, SERUM 6.4 g/dL (6.4-8.2)
[2018-08-31 21:00] LABS: ALBUMIN 2.4 g/dL (3.4-5.0)
[2018-08-31 22:19] VITALS: BP 122/73
== END 2018-08-31 22:19 | disposition home or self-care (01) ==
LOC: ED 19:53
PROVIDERS: Emergency Medicine
DX: F41.9 Anxiety disorder, unspecified (principal); R07.89 Other chest pain; I10 Essential (primary) hypertension; E11.9 Type 2 diabetes mellitus without complications; E78.00 Pure hypercholesterolemia, unspecified; M19.90 Unspecified osteoarthritis, unspecified site; Z90.49 Acquired absence of other specified parts of digestive tract; Z88.8 Allergy status to other drugs, medicaments and biological substances; Z88.5 Allergy status to narcotic agent; Z88.6 Allergy status to analgesic agent
CPT/HCPCS: 36415; Q0092